=== PATIENT | male | born 1945 | race Hispanic/Latino ===

== ENCOUNTER 2022-04-23 12:15 | Inpatient (IN) | payer MEDICARE ==
[2022-04-23] MEDS ORDERED: ACETAMINOPHEN 650 MG RECT SUPP PR ONE (13:02)
--- NOTE | 2022-04-23 13:08 | XRay Report ---
CHEST 1 VIEW 04/23/2022 12:40 PM INDICATION / CLINICAL INFORMATION: fever, hypoxia. COMPARISON: None available. FINDINGS: SUPPORT DEVICES: None. HEART / MEDIASTINUM: Borderline to mild cardiomegaly LUNGS / PLEURA: Mild central pulmonary venous congestion is suspected. No convincing infiltrate, pleu ral effusion or pneumothorax ADDITIONAL FINDINGS: No significant additional findings. IMPRESSION: 1. Mild cardiomegaly and pulmonary venous congestion. No convincing pneumonia on portable AP chest. Signer Name: Earl Ashby Jr, MD Signed: 04/23/2022 1:04 PM Workstation Name: [id number]
[2022-04-23 13:37] LABS: Hematocrit 30.4 % (35.5-45.6); Hemoglobin 10.2 gm/dl (11.8-15.2); Mean Corpuscular HGB Conc 33 % (32-34); Mean Corpuscular Volume 94 fl (84-94); Platelet Count 173 K/mm3 (140-440); Red Blood Count 3.22 M/mm3 (3.65-5.03); Red Cell Distribution Width 15.2 % (13.2-15.2)
[2022-04-23 14:02] LABS: Alanine Aminotransferase 9 units/L (7-56); Albumin 3.2 g/dL (3.9-5); BUN/Creatinine Ratio 21; Blood Urea Nitrogen 23 mg/dL (9-20); Calcium 8.2 mg/dL (8.4-10.2); Hemolysis Index 5
[2022-04-23] MEDS ORDERED: CEFEPIME/NS 2 GM/100 ML 2 GM/100 ML BAG IV ONE (14:02)
[2022-04-23] MEDS ORDERED: VANCOMYCIN 2,000 MG in SODIUM CHLORIDE 0.9% 500 ML 500 ML IV ONE (14:02)
--- NOTE | 2022-04-23 14:15 | Emergency Department Report ---
ED Fever HPI - General Chief Complaint: Dyspnea/Respdistress Stated Complaint: FEVER/DIFFICULTY BREATHING Time Seen by Provider: 04/23/22 12:32 Source: patient Exam Limitations: clinical condition (Diminished mental status) - History of Present Illness Initial Comments: 76-year-old male with a past medical history of chronic lymphedema, A. fib currently on Eliquis, hypertension, hypothyroidism, and diabetes presents to the hospital from skilled nursing with complaints of fever and hypoxia. EMS reports a saturation 74% on nasal cannula patient was therefore transported with no nrebreather. Fever 102.3 upon EMS arrival. Patient is drowsy but easily arousable denies pain at this time but complains of generalized weakness and malaise ED Review of Systems ROS: Stated complaint: FEVER/DIFFICULTY BREATHING Other details as noted in HPI Comment: All other systems reviewed and negative ED Past Medical Hx - Social History Smoking Status: Former Smoker Substance Use Type: None ED Physical Exam - General Limitations: No Limitations - Other Other exam information: General: Morbidly obese Head: Atraumatic Eyes: normal appearance ENT: Moist mucous membranes Neck: Normal appearance, no midline tenderness Chest: Clear to auscultation bilaterally, tachypnea CV: Irregular rhythm Abdomen: Soft, normal bowel sounds, nontender, nondistended, no rebound or guarding Back: Normal inspection Extremity: Bilateral lower extremity lymphedema with erythema and mild odorous weeping to leg wounds. Erythema extending from the lower extremity upwards towards the thigh Neuro: Drowsy but easily arousable. Oriented x3, equal handgrip Psych: Appropriate behavior Skin: No rash ED Course Vital Signs 04/23/22 04/23/22 12:19 12:35 Temperature 101.0 F H Pulse Rate 98 H 93 H Respiratory 33 H Rate Blood Pressure 134/53 Blood Pressure 168/98 134/53 [Left] O2 Sat by Pulse 100 100 Oximetry ED Medical Decision Making - Lab Data Result diagrams: 04/23/22 12:57 04/23/22 12:57 Lab Results 04/23/22 04/23/22 04/23/22 Range/Units 12:57 12:57 12:57 WBC 12.2 H (4.5-11.0) K/mm3 RBC 3.22 L (3.65-5.03) M/mm3 Hgb 10.2 L (11.8-15.2) gm/dl Hct 30.4 L (35.5-45.6) % MCV 94 (84-94) fl MCH 32 (28-32) pg MCHC 33 (32-34) % RDW 15.2 (13.2-15.2) % Plt Count 173 (140-440) K/mm3 Seg Neutrophils % Mallet Cutter APTT 45.2 H (24.2-36.6) Sec. Sodium 136 L (137-145) mmol/L Potassium 4.0 (3.6-5.0) mmol/L Chloride 99.7 (98-107) mmol/L Carbon Dioxide 19 L (22-30) mmol/L Anion Gap 21 mmol/L BUN 23 H (9-20) mg/dL Creatinine 1.1 (0.8-1.3) mg/dL Estimated GFR > 60 ml/min BUN/Creatinine Ratio 21 % Glucose 114 H (75-100) mg/dL Calcium 8.2 L (8.4-10.2) mg/dL Total Bilirubin 1.20 (0.1-1.2) mg/dL AST 19 (5-40) units/L ALT 9 (7-56) units/L Alkaline Phosphatase 70 (35-129) units/L Troponin T < 0.010 (0.00-0.029) ng/mL NT-Pro-B Natriuret Pep (0-900) pg/mL Total Protein 6.9 (6.3-8.2) g/dL Albumin 3.2 L (3.9-5) g/dL Albumin/Globulin Ratio 0.9 % 04/23/22 Range/Units 12:57 WBC (4.5-11.0) K/mm3 RBC (3.65-5.03) M/mm3 Hgb (11.8-15.2) gm/dl Hct (35.5-45.6) % MCV (84-94) fl MCH (28-32) pg MCHC (32-34) % RDW (13.2-15.2) % Plt Count (140-440) K/mm3 Seg Neutrophils % APTT (24.2-36.6) Sec. Sodium (137-145) mmol/L Potassium (3.6-5.0) mmol/L Chloride (98-107) mmol/L Carbon Dioxide (22-30) mmol/L Anion Gap mmol/L BUN (9-20) mg/dL Creatinine (0.8-1.3) mg/dL Estimated GFR ml/min BUN/Creatinine Ratio % Glucose (75-100) mg/dL Calcium (8.4-10.2) mg/dL Total Bilirubin (0.1-1.2) mg/dL AST (5-40) units/L ALT (7-56) units/L Alkaline Phosphatase (35-129) units/L Troponin T (0.00-0.029) ng/mL NT-Pro-B Natriuret Pep 4561 H (0-900) pg/mL Total Protein (6.3-8.2) g/dL Albumin (3.9-5) g/dL Albumin/Globulin Ratio % - EKG Data -: EKG Interpreted by Me EKG shows normal: ST-T waves (No STEMI) Rate: tachycardia (Irregular tachycardia likely A. fib rate 100) - Radiology Data Radiology results: report reviewed CHEST 1 VIEW 04/23/2022 12:40 PM INDICATION / CLINICAL INFORMATION: fever, hypoxia. COMPARISON: None available. FINDINGS: SUPPORT DEVICES: None. HEART / MEDIASTINUM: Borderline to mild cardiomegaly LUNGS / PLEURA: Mild central pulmonary venous congestion is suspected. No convincing infiltrate, pleural effusion or pneumothorax ADDITIONAL FINDINGS: No significant additional findings. IMPRESSION: 1. Mild cardiomegaly and pulmonary venous congestion. No convincing pneumonia on portable AP chest. - Medical Decision Making 76-year-old male presents to the hospital with fever and possible hypoxia. Patient transitioned from nonrebreather to 4 L nasal cannula with saturation of 100%. Sepsis protocol initiated. Patient received cefepime and vancomycin with likely source of infection to lower extremities. No signs of septic shock. Chest x-ray reveals findings of heart failure therefore 30 mill per KG bolus normal saline not provided since patient does not have hypotension. Lactic acid pending at disposition. Hospitalist to admit ABG presented suggest a respiratory alkalosis performed on 36% FiO2 Critical Care Time: No Critical care attestation.: If time is entered above; I have spent that time in minutes in the direct care of this critically ill patient, excluding procedure time. ED Disposition Clinical Impression: Fever, Cellulitis, leg, CHF exacerbation Disposition: ADMITTED INPATIENT Is pt being admited?: No Does the pt Need Aspirin: No Condition: Stable Time of Disposition: 14:59
[2022-04-23 14:32] LABS: ABG Base Excess -1.4 mmol/L (-2.0-3.0); ABG HCO3 21.1 mmol/L (20.0-26.0); ABG Methemoglobin 0.6 % (0.0-1.5); ABG Oxygen Saturation 96.6 % (95.0-99.0); ABG PCO2 28.5 mm Hg; ABG PH 7.487 pH Units (7.350-7.450); ABG PO2 72.8 mm Hg (80.0-90.0)
[2022-04-23 14:34] LABS: Anisocytosis 1+; Band Neutrophils # (Manual) 0.2 K/mm3; Basophils % (Manual) 0 % (0.0-1.8); Eosinophils % (Manual) 0 % (0.0-4.3); Platelet Estimate Consistent w Auto; Total Cells Counted 100
[2022-04-23] MEDS ORDERED: ONDANSETRON 4 MG/2 ML INJ IV PRN (14:49)
[2022-04-23] MEDS ORDERED: ALBUTEROL 2.5 MG/3 ML NEBU IH PRN (14:49)
[2022-04-23] MEDS ORDERED: ACETAMINOPHEN 325 MG TAB PO PRN ×2 (14:49→14:52)
[2022-04-23] MEDS ORDERED: SODIUM CHLORIDE 0.9% 1000 ML IV SOLN IV SCH (14:52)
[2022-04-23] MEDS ORDERED: HYDROmorphone 0.5 MG/0.5 ML INJ IV PRN (14:52)
[2022-04-23] MEDS ORDERED: VANCOMYCIN PHARMACY TO DOSE IV SCH (15:00)
--- NOTE | 2022-04-23 15:05 | History and Physical Report ---
History of Present Illness Chief complaint: He has a fever History of present illness: 76 YO [facility] Resident at [facility] with Chronic Lymphedema, Atrial Fib on therapeutic anticoagulation with Eliquis, DM, Hypothyroidism, Obesity presents to ED for evaluation. Patient is lethargic with diminished cognition at time of evaluation and limited provide history. Patient is brought in by EMS staff, ED staff, as well as [facility] facility staff. As per staff the patient was found to have fever to 102.3 degrees. EMS notified and upon arrival the patient was found to be in distress and subsequent transported to [facility] for further care and evaluation of the aforementioned symptoms. The patient was seen and evaluated in the emergency department. All lab and imaging studies reviewed. Patient found to have a pulse oximetry of 78% on room air which is consistent with acute hypoxemic respiratory failure secondary to pneumonia complicated by sepsis. Patient also found to have concomitant right leg cellulitis, hyponatremia, toxic metabolic encephalopathy, and metabolic acidosis, as well as urinary tract infection. Patient admitted to telemetry and initiated on sepsis protocol, as well as pneumonia protocol. Patient has diminished cognition but has a positive gag reflex and is able to protect his airway without difficulty. No reports of chills, chest pain, palpitation, productive cough, trauma, skin rash, recent contact, known exposure to COVID-19. No prior admission for review. No medication listed at time of admission for reconciliation. Advanced care planning conducted in ED. Past History Past Medical History: atrial fib, diabetes, hypertension Past Surgical History: No surgical history, Other (Reviewed) Social history: single. denies: smoking, alcohol abuse, prescription drug abuse Family history: diabetes, hypertension Medications and Allergies Allergies Allergy/AdvReac Type Severity Reaction Status Date / Time No Known Allergies Allergy Verified 04/23/22 12:24 Active Meds: Active Medications Acetaminophen (Acetaminophen 325 Mg Tab) 650 mg PO Q4H PRN PRN Reason: Pain MILD(1-3)/Fever >100.5/GUTIERREZ Acetaminophen (Acetaminophen 325 Mg Tab) 650 mg PO Q6H PRN PRN Reason: Pain, Mild (1-3) Albuterol (Albuterol 2.5 Mg/3 Ml Nebu) 2.5 mg IH Q4HRT PRN PRN Reason: Shortness Of Breath Hydromorphone HCl (Hydromorphone 0.5 Mg/0.5 Ml Inj) 0.5 mg IV Q3H PRN PRN Reason: Pain , Severe (7-10) Hydromorphone HCl (Hydromorphone 0.5 Mg/0.5 Ml Inj) 0.25 mg IV Q4H PRN PRN Reason: Pain, Moderate (4-6) Vancomycin HCl 1,500 mg/ (Sodium Chloride) 530 mls @ 265 mls/hr IV Q12H VENESSA; Protocol Cefepime HCl (Cefepime/Ns 2 Gm/100 Ml) 2 gm in 100 mls @ 200 mls/hr IV Q8H VENESSA; Protocol Ondansetron HCl (Ondansetron 4 Mg/2 Ml Inj) 4 mg IV Q8H PRN PRN Reason: Nausea And Vomiting Oxycodone/Acetaminophen (Oxycodone /Acetaminophen 5-325mg Tab) 1 tab PO Q6H PRN PRN Reason: Pain, Moderate (4-6) Sodium Chloride (Sodium Chloride 0.9% 10 Ml Flush Syringe) 10 ml IV BID VENESSA Sodium Chloride (Sodium Chloride 0.9% 10 Ml Flush Syringe) 10 ml IV PRN PRN PRN Reason: LINE FLUSH Sodium Chloride (Sodium Chloride 0.9% 1000 Ml Iv Soln) 3,650 ml 30 ml/kg (3650 ml) IV ONCE ONE Stop: 04/23/22 14:53 Review of Systems ROS unobtainable: due to mental status Exam - Constitutional Vitals: Temp Pulse Resp BP Pulse Ox 101.0 F H 88 24 132/58 98 04/23/22 12:35 04/23/22 14:54 04/23/22 14:54 04/23/22 14:54 04/23/22 14:54 General appearance: Present: mild distress, obese - EENT Eyes: Present: PERRL ENT: clear oral mucosa, hearing decreased - Neck Neck: Present: supple, normal ROM - Respiratory Respiratory effort: labored, accessory muscle use Respiratory: bilateral: diminished - Cardiovascular Heart Sounds: Present: S1 & S2. Absent: rub, click - Extremities Extremity abnormal: edema Peripheral Pulses: abnormal (Capillary refill greater than 3.5 seconds) - Abdominal General gastrointestinal: Present: soft, non-tender, non-distended, normal bowel sounds Male genitourinary: Present: normal - Integumentary Integumentary: Present: dry, clammy, decreased turgor - Musculoskeletal Musculoskeletal: generalized weakness - Psychiatric Psychiatric: no appropriate mood/affect, no intact judgment & insight, no memory intact - Neurologic Neurologic: CNII-XII intact, no focal deficits, moves all extremities, no gait normal HEART Score - HEART Score Troponin: Troponin T < 0.010 ng/mL (0.00-0.029) 04/23/22 12:57 Results - Labs CBC & Chem 7: 04/23/22 12:57 04/23/22 12:57 Labs: Abnormal lab results 04/23/22 04/23/22 04/23/22 Range/Units 12:57 12:57 12:57 WBC 12.2 H (4.5-11.0) K/mm3 RBC 3.22 L (3.65-5.03) M/mm3 Hgb 10.2 L (11.8-15.2) gm/dl Hct 30.4 L (35.5-45.6) % Seg Neuts % (Manual) 92.0 H (40.0-70.0) % Lymphocytes % (Manual) 4.0 L (13.4-35.0) % Seg Neutrophils # Man 11.2 H (1.8-7.7) K/mm3 Lymphocytes # (Manual) 0.5 L (1.2-5.4) K/mm3 APTT 45.2 H (24.2-36.6) Sec. ABG pH (7.350-7.450) pH Units ABG pO2 (80.0-90.0) mm Hg ABG Hemoglobin (14.0-18.0) gm/dl Oxyhemoglobin (95.0-99.0) % Sodium 136 L (137-145) mmol/L Carbon Dioxide 19 L (22-30) mmol/L BUN 23 H (9-20) mg/dL Glucose 114 H (75-100) mg/dL Lactic Acid (0.7-2.0) mmol/L Calcium 8.2 L (8.4-10.2) mg/dL NT-Pro-B Natriuret Pep (0-900) pg/mL Albumin 3.2 L (3.9-5) g/dL 04/23/22 04/23/22 04/23/22 Range/Units 12:57 12:57 14:14 WBC (4.5-11.0) K/mm3 RBC (3.65-5.03) M/mm3 Hgb (11.8-15.2) gm/dl Hct (35.5-45.6) % Seg Neuts % (Manual) (40.0-70.0) % Lymphocytes % (Manual) (13.4-35.0) % Seg Neutrophils # Man (1.8-7.7) K/mm3 Lymphocytes # (Manual) (1.2-5.4) K/mm3 APTT (24.2-36.6) Sec. ABG pH 7.487 H (7.350-7.450) pH Units ABG pO2 72.8 L (80.0-90.0) mm Hg ABG Hemoglobin 11.3 L (14.0-18.0) gm/dl Oxyhemoglobin 94.3 L (95.0-99.0) % Sodium (137-145) mmol/L Carbon Dioxide (22-30) mmol/L BUN (9-20) mg/dL Glucose (75-100) mg/dL Lactic Acid 2.80 H* (0.7-2.0) mmol/L Calcium (8.4-10.2) mg/dL NT-Pro-B Natriuret Pep 4561 H (0-900) pg/mL Albumin (3.9-5) g/dL Assessment and Plan - Patient Problems (1) Sepsis Current Visit: Yes Status: Acute Plan to address problem: Sepsis protocol: Chest x-ray, CBC, urinalysis, IV fluid resuscitation therapy as clinically indicated, IV antibiotic therapy, maintain mean arterial pressure greater than equal to 65, monitor fluid balance, IV pressor support as clinically indicated, serial lactic acid level. Blood culture. (2) CHF (congestive heart failure) Current Visit: Yes Status: Acute Qualifiers: Heart failure chronicity: chronic Plan to address problem: Strict I/O, monitor fluid balance, care is taken not to exacerbate heart failure with fluid overload, strict I's/O, supportive care. Continue medical management. (3) Acute hypoxemic respiratory failure Current Visit: Yes Status: Acute Plan to address problem: Chest x-ray, supplemental oxygen, nebulizer therapy, noninvasive positive pressure ventilation as clinically indicated. (4) Pneumonia Current Visit: Yes Status: Acute Plan to address problem: Pneumonia protocol: Chest x-ray, CBC, IV antibiotic therapy, blood culture, supportive care. (5) UTI (urinary tract infection) Current Visit: Yes Status: Acute Qualifiers: Encounter type: initial encounter Plan to address problem: IV antibiotic therapy, urinalysis, continue medical management. (6) Toxic metabolic encephalopathy Current Visit: Yes Status: Acute Plan to address problem: Treat sepsis, supportive care. (7) Metabolic acidosis Current Visit: Yes Status: Acute Plan to address problem: I will resuscitation therapy, BMP, repeat BMP in AM. Serial lactic acid level. (8) Cellulitis, leg Current Visit: Yes Status: Acute Plan to address problem: IV antibiotic therapy, supportive care (9) DVT prophylaxis Current Visit: Yes Status: Acute Plan to address problem: SCD to bilateral lower extremities on bed (10) Advance care planning Current Visit: Yes Status: Acute Plan to address problem: Disease education data, care plan discussed, diagnoses discussed, patient is full code, +30 minutes. (11) Preventative health care Current Visit: Yes Status: Acute Plan to address problem: Patient to follow-up with primary care physician for all age and risk factor appropriate screening test. +30 minutes.
[2022-04-23] MEDS: VANCOMYCIN 1,500 MG in SODIUM CHLORIDE 0.9% 500 ML 500 ML IV SCH (15:33)
[2022-04-23 15:42] LABS: Bilirubin,Urine NEG (Negative); Blood,Urine MOD (Negative); Color,Urine Yellow (Yellow); Urobilinogen,Urine < 2 mg/dL (<2.0)
[2022-04-23 15:46] LABS: Amorphous Crystals,Urine Few; Bacteria,Urine 4+ /HPF (Negative)
[2022-04-24] MEDS: CEFEPIME/NS 2 GM/100 ML 2 GM/100 ML BAG IV SCH ×4 (00:24→21:37)
[2022-04-24] MEDS: VANCOMYCIN 1,500 MG in SODIUM CHLORIDE 0.9% 500 ML 500 ML IV SCH (03:50)
[2022-04-24] MEDS: HYDROmorphone 0.5 MG/0.5 ML INJ IV PRN (05:36)
[2022-04-24 06:22] LABS: Basophils % (Auto) 0.1 % (0.0-1.8); Eosinophils % (Auto) 0.5 % (0.0-4.3); Hematocrit 25.8 % (35.5-45.6); Hemoglobin 8.9 gm/dl (11.8-15.2); Lymphocytes # (Auto) 0.7 K/mm3 (1.2-5.4); Lymphocytes % (Auto) 6.8 % (13.4-35.0); Mean Corpuscular HGB Conc 34 % (32-34); Mean Corpuscular Volume 94 fl (84-94); Monocytes # (Auto) 0.4 K/mm3 (0.0-0.8); Monocytes % (Auto) 3.9 % (0.0-7.3); Platelet Count 161 K/mm3 (140-440); Red Blood Count 2.75 M/mm3 (3.65-5.03); Red Cell Distribution Width 15.1 % (13.2-15.2)
[2022-04-24 06:32] LABS: BUN/Creatinine Ratio 24; Blood Urea Nitrogen 22 mg/dL (9-20); Calcium 7.4 mg/dL (8.4-10.2); Hemolysis Index 1
--- NOTE | 2022-04-24 10:48 | Progress Note ---
Assessment and Plan Assessment and plan: 76 YO Custodial Facility Resident at [facility] with Chronic Lymphedema, Atrial Fib on therapeutic anticoagulation with Eliquis, DM, Hypothyroidism, Obesity presents to ED for evaluation of lethargy, AMS, fever and hypoxia. Patient found to have a pulse oximetry of 78% on room air which is consistent with acute hypoxemic respiratory failure secondary to pneumonia complicated by sepsis. Patient also found to have concomitant right leg cellulitis, hyponatremia, toxic metabolic encephalopathy, and metabolic acidosis, as well as urinary tract infection. Patient admitted to telemetry and initiated on sepsis protocol, as well as pneumonia protocol. Sepsis Acute hypoxic respiratory failure Pneumonia UTI Toxic metabolic encephalopathy Right leg cellulitis Atrial fibrillation, rate controlled Diabetes mellitus type 2 Hypothyroidism Obesity Diarrhea Hospital course: 04/24/2022. The patient will be continued on IV antibiotics per sepsis pathway. Follow-up blood and urine cultures. Continue O2 supplementation to maintain sats greater than 92%. With regards to the encephalopathy, continue to treat underlying causes. Continue anticoagulation and consider cardiology consultation. Continue Accu-Cheks and sliding scale insulin. Patient also reports 1 week of diarrheal stool. We will check stool studies History Interval history: No new issues overnight Hospitalist Physical - Constitutional Vitals: Temp Pulse Resp BP Pulse Ox 98.0 F 90 18 120/54 95 04/24/22 07:35 04/24/22 07:35 04/24/22 07:35 04/24/22 07:35 04/24/22 09:32 General appearance: Present: mild distress, obese - EENT Eyes: Present: PERRL, EOM intact ENT: hearing intact, clear oral mucosa, dentition normal - Neck Neck: Present: supple, normal ROM - Respiratory Respiratory effort: normal Respiratory: bilateral: CTA - Cardiovascular Rhythm: regular Heart Sounds: Present: S1 & S2. Absent: gallop, rub - Extremities Extremities: no ischemia, No edema, Full ROM - Abdominal General gastrointestinal: soft, non-tender, non-distended, normal bowel sounds - Integumentary Integumentary: Present: clear, warm, dry - Neurologic Neurologic: CNII-XII intact, moves all extremities HEART Score - HEART Score Troponin: Troponin T < 0.010 ng/mL (0.00-0.029) 04/23/22 12:57 Results - Labs CBC & Chem 7: 04/24/22 05:46 04/24/22 05:46 Labs: Laboratory Last Values WBC 10.0 K/mm3 (4.5-11.0) 04/24/22 05:46 RBC 2.75 M/mm3 (3.65-5.03) L 04/24/22 05:46 Hgb 8.9 gm/dl (11.8-15.2) L 04/24/22 05:46 Hct 25.8 % (35.5-45.6) L 04/24/22 05:46 MCV 94 fl (84-94) 04/24/22 05:46 MCH 32 pg (28-32) 04/24/22 05:46 MCHC 34 % (32-34) 04/24/22 05:46 RDW 15.1 % (13.2-15.2) 04/24/22 05:46 Plt Count 161 K/mm3 (140-440) 04/24/22 05:46 Lymph % (Auto) 6.8 % (13.4-35.0) L 04/24/22 05:46 [place] % (Auto) 3.9 % (0.0-7.3) 04/24/22 05:46 Eos % (Auto) 0.5 % (0.0-4.3) 04/24/22 05:46 Baso % (Auto) 0.1 % (0.0-1.8) 04/24/22 05:46 Lymph # (Auto) 0.7 K/mm3 (1.2-5.4) L 04/24/22 05:46 [place] # (Auto) 0.4 K/mm3 (0.0-0.8) 04/24/22 05:46 Eos # (Auto) 0.0 K/mm3 (0.0-0.4) 04/24/22 05:46 Baso # (Auto) 0.0 K/mm3 (0.0-0.1) 04/24/22 05:46 Add Manual Diff Complete 04/23/22 12:57 Total Counted 100 04/23/22 12:57 Seg Neutrophils % 88.7 % (40.0-70.0) H 04/24/22 05:46 Seg Neuts % (Manual) 92.0 % (40.0-70.0) H 04/23/22 12:57 Band Neutrophils % 2.0 % 04/23/22 12:57 Lymphocytes % (Manual) 4.0 % (13.4-35.0) L 04/23/22 12:57 Reactive Lymphs % (Man) 0 % 04/23/22 12:57 Monocytes % (Manual) 2.0 % (0.0-7.3) 04/23/22 12:57 Eosinophils % (Manual) 0 % (0.0-4.3) 04/23/22 12:57 Basophils % (Manual) 0 % (0.0-1.8) 04/23/22 12:57 Metamyelocytes % 0 % 04/23/22 12:57 Myelocytes % 0 % 04/23/22 12:57 Promyelocytes % 0 % 04/23/22 12:57 Blast Cells % 0 % 04/23/22 12:57 Nucleated RBC % Not Reportable 04/23/22 12:57 Seg Neutrophils # 8.9 K/mm3 (1.8-7.7) H 04/24/22 05:46 Seg Neutrophils # Man 11.2 K/mm3 (1.8-7.7) H 04/23/22 12:57 Band Neutrophils # 0.2 K/mm3 04/23/22 12:57 Lymphocytes # (Manual) 0.5 K/mm3 (1.2-5.4) L 04/23/22 12:57 Abs React Lymphs (Man) 0.0 K/mm3 04/23/22 12:57 Monocytes # (Manual) 0.2 K/mm3 (0.0-0.8) 04/23/22 12:57 Eosinophils # (Manual) 0.0 K/mm3 (0.0-0.4) 04/23/22 12:57 Basophils # (Manual) 0.0 K/mm3 (0.0-0.1) 04/23/22 12:57 Metamyelocytes # 0.0 K/mm3 04/23/22 12:57 Myelocytes # 0.0 K/mm3 04/23/22 12:57 Promyelocytes # 0.0 K/mm3 04/23/22 12:57 Blast Cells # 0.0 K/mm3 04/23/22 12:57 WBC Morphology Not Reportable 04/23/22 12:57 Hypersegmented Neuts Not Reportable 04/23/22 12:57 Hyposegmented Neuts Not Reportable 04/23/22 12:57 Hypogranular Neuts Not Reportable 04/23/22 12:57 Smudge Cells Not Reportable 04/23/22 12:57 Toxic Granulation Not Reportable 04/23/22 12:57 Toxic Vacuolation Not Reportable 04/23/22 12:57 Dohle Bodies Not Reportable 04/23/22 12:57 Pelger-Huet Anomaly Not Reportable 04/23/22 12:57 Bj Rods Not Reportable 04/23/22 12:57 Platelet Estimate Consistent w auto 04/23/22 12:57 Clumped Platelets Not Reportable 04/23/22 12:57 Plt Clumps, EDTA Not Reportable 04/23/22 12:57 Large Platelets Not Reportable 04/23/22 12:57 Giant Platelets Not Reportable 04/23/22 12:57 Platelet Satelliting Not Reportable 04/23/22 12:57 Plt Morphology Comment Not Reportable 04/23/22 12:57 RBC Morphology Not Reportable 04/23/22 12:57 Dimorphic RBCs Not Reportable 04/23/22 12:57 Polychromasia Not Reportable 04/23/22 12:57 Hypochromasia Not Reportable 04/23/22 12:57 Poikilocytosis Not Reportable 04/23/22 12:57 Anisocytosis 1+ 04/23/22 12:57 Microcytosis Not Reportable 04/23/22 12:57 Macrocytosis Not Reportable 04/23/22 12:57 Spherocytes Not Reportable 04/23/22 12:57 Pappenheimer Bodies Not Reportable 04/23/22 12:57 Sickle Cells Not Reportable 04/23/22 12:57 Target Cells Not Reportable 04/23/22 12:57 Tear Drop Cells Not Reportable 04/23/22 12:57 Ovalocytes Not Reportable 04/23/22 12:57 Helmet Cells Not Reportable 04/23/22 12:57 Joy-Lamkin Bodies Not Reportable 04/23/22 12:57 [place] Rings Not Reportable 04/23/22 12:57 [place] Cells Not Reportable 04/23/22 12:57 Bite Cells Not Reportable 04/23/22 12:57 Crenated Cell Not Reportable 04/23/22 12:57 Elliptocytes Not Reportable 04/23/22 12:57 Acanthocytes (Spur) Not Reportable 04/23/22 12:57 Rouleaux Not Reportable 04/23/22 12:57 Hemoglobin C Crystals Not Reportable 04/23/22 12:57 Schistocytes Not Reportable 04/23/22 12:57 Malaria parasites Not Reportable 04/23/22 12:57 Mikey Bodies Not Reportable 04/23/22 12:57 Hem Pathologist Commnt No 04/23/22 12:57 APTT 45.2 Sec. (24.2-36.6) H 04/23/22 12:57 D-Dimer 1033.55 ng/mlDDU (0-234) H 04/23/22 16:17 ABG pH 7.487 pH Units (7.350-7.450) H 04/23/22 14:14 ABG pCO2 28.5 mm Hg 04/23/22 14:14 ABG pO2 72.8 mm Hg (80.0-90.0) L 04/23/22 14:14 ABG HCO3 21.1 mmol/L (20.0-26.0) 04/23/22 14:14 ABG O2 Saturation 96.6 % (95.0-99.0) 04/23/22 14:14 ABG O2 Content 15.1 (0.0-44) 04/23/22 14:14 ABG Base Excess -1.4 mmol/L (-2.0-3.0) 04/23/22 14:14 ABG Hemoglobin 11.3 gm/dl (14.0-18.0) L 04/23/22 14:14 ABG Carboxyhemoglobin 1.9 % (0.0-5.0) 04/23/22 14:14 ABG Methemoglobin 0.6 % (0.0-1.5) 04/23/22 14:14 Oxyhemoglobin 94.3 % (95.0-99.0) L 04/23/22 14:14 FiO2 36 % 04/23/22 14:14 Sodium 135 mmol/L (137-145) L 04/24/22 05:46 Potassium 3.2 mmol/L (3.6-5.0) L 04/24/22 05:46 Chloride 104.0 mmol/L (98-107) 04/24/22 05:46 Carbon Dioxide 21 mmol/L (22-30) L 04/24/22 05:46 Anion Gap 13 mmol/L 04/24/22 05:46 BUN 22 mg/dL (9-20) H 04/24/22 05:46 Creatinine 0.9 mg/dL (0.8-1.3) 04/24/22 05:46 Estimated GFR > 60 ml/min 04/24/22 05:46 BUN/Creatinine Ratio 24 % 04/24/22 05:46 Glucose 118 mg/dL (75-100) H 04/24/22 05:46 Lactic Acid 0.90 mmol/L (0.7-2.0) 04/24/22 05:46 Calcium 7.4 mg/dL (8.4-10.2) L 04/24/22 05:46 Total Bilirubin 1.20 mg/dL (0.1-1.2) 04/23/22 12:57 AST 19 units/L (5-40) 04/23/22 12:57 ALT 9 units/L (7-56) 04/23/22 12:57 Alkaline Phosphatase 70 units/L (35-129) 04/23/22 12:57 Troponin T < 0.010 ng/mL (0.00-0.029) 04/23/22 12:57 NT-Pro-B Natriuret Pep 4561 pg/mL (0-900) H 04/23/22 12:57 Total Protein 6.9 g/dL (6.3-8.2) 04/23/22 12:57 Albumin 3.2 g/dL (3.9-5) L 04/23/22 12:57 Albumin/Globulin Ratio 0.9 % 04/23/22 12:57 Urine Color Yellow (Yellow) 04/23/22 14:47 Urine Turbidity Slightly-cloudy (Clear) 04/23/22 14:47 Urine pH 6.0 (5.0-7.0) 04/23/22 14:47 Ur Specific [place] 1.016 (1.003-1.030) 04/23/22 14:47 Urine Protein 100 mg/dl mg/dL (Negative) 04/23/22 14:47 Urine Glucose (UA) Neg mg/dL (Negative) 04/23/22 14:47 Urine Ketones 20 mg/dL (Negative) 04/23/22 14:47 Urine Blood Mod (Negative) 04/23/22 14:47 Urine Nitrite Neg (Negative) 04/23/22 14:47 Urine Bilirubin Neg (Negative) 04/23/22 14:47 Urine Urobilinogen < 2 mg/dL (<2.0) 04/23/22 14:47 Ur Leukocyte Esterase Mod (Negative) 04/23/22 14:47 Urine WBC (Auto) 29.0 /HPF (0.0-6.0) H 04/23/22 14:47 Urine RBC (Auto) 2.0 /HPF (0.0-6.0) 04/23/22 14:47 U Epithel Cells (Auto) < 1.0 /HPF (0-13.0) 04/23/22 14:47 Urine Bacteria (Auto) 4+ /HPF (Negative) 04/23/22 14:47 Amorphous Crystals Few 04/23/22 14:47 SARS-CoV-2 (PCR) Negative (Negative) 04/23/22 14:14 Blood Type O POSITIVE 04/23/22 16:22 Antibody Screen Negative 04/23/22 16:22 Microbiology: Microbiology 04/23/22 12:57 Peripheral/Venous Blood Culture - Preliminary Culture in Progress 04/23/22 12:57 Peripheral/Venous Blood Culture - Preliminary Culture in Progress Cornelius/IV: Voiding Method Incontinent Active Medications - Current Medications Current Medications: Generic Name Dose Route Start Last Admin Trade Name Freq PRN Reason Stop Dose Admin Acetaminophen 650 mg 04/23/22 14:52 Acetaminophen 325 Mg Tab PO Q6H PRN Pain, Mild (1-3) Albuterol 2.5 mg 04/23/22 14:49 Albuterol 2.5 Mg/3 Ml Nebu IH Q4HRT PRN Shortness Of Breath Hydromorphone HCl 0.5 mg 04/23/22 14:49 04/24/22 05:36 Hydromorphone 0.5 Mg/0.5 Ml Inj IV 0.5 mg Q3H PRN Administration Pain , Severe (7-10) Hydromorphone HCl 0.25 mg 04/23/22 14:52 Hydromorphone 0.5 Mg/0.5 Ml Inj IV Q4H PRN Pain, Moderate (4-6) Cefepime HCl 2 gm in 100 mls @ 200 mls/hr 04/23/22 22:00 04/24/22 05:36 Cefepime/Ns 2 Gm/100 Ml IV 200 mls/hr Q8H VENESSA Administration Protocol Ondansetron HCl 4 mg 04/23/22 14:49 Ondansetron 4 Mg/2 Ml Inj IV Q8H PRN Nausea And Vomiting Oxycodone/Acetaminophen 1 tab 04/23/22 14:49 Oxycodone /Acetaminophen 5-325mg Tab PO Q6H PRN Pain, Moderate (4-6) Sodium Chloride 10 ml 04/23/22 22:00 04/24/22 00:24 Sodium Chloride 0.9% 10 Ml Flush Syringe IV 10 ml BID VENESSA Administration Sodium Chloride 10 ml 04/23/22 14:49 Sodium Chloride 0.9% 10 Ml Flush Syringe IV PRN PRN LINE FLUSH Sodium Chloride 3,650 ml 04/23/22 14:52 Sodium Chloride 0.9% 1000 Ml Iv Soln 30 ml/kg (3650 ml) IV ONCE VENESSA
[2022-04-25] MEDS: CEFEPIME/NS 2 GM/100 ML 2 GM/100 ML BAG IV SCH ×3 (05:16→21:15)
[2022-04-25] MEDS: HYDROmorphone 0.5 MG/0.5 ML INJ IV PRN (05:17)
--- NOTE | 2022-04-25 08:33 | Progress Note ---
Assessment and Plan Assessment and plan: 76 YO Residential Facility Resident at [facility] with Chronic Lymphedema, Atrial Fib on therapeutic anticoagulation with Eliquis, DM, Hypothyroidism, Obesity presents to ED for evaluation of lethargy, AMS, fever and hypoxia. Patient found to have a pulse oximetry of 78% on room air which is consistent with acute hypoxemic respiratory failure secondary to pneumonia complicated by sepsis. Patient also found to have concomitant right leg cellulitis, hyponatremia, toxic metabolic encephalopathy, and metabolic acidosis, as well as urinary tract infection. Patient admitted to telemetry and initiated on sepsis protocol, as well as pneumonia protocol. Sepsis Acute hypoxic respiratory failure Pneumonia UTI Toxic metabolic encephalopathy Right leg cellulitis Atrial fibrillation, rate controlled Diabetes mellitus type 2 Hypothyroidism Obesity Diarrhea Hospital course: 04/24/2022. The patient will be continued on IV antibiotics per sepsis pathway. Follow-up blood and urine cultures. Continue O2 supplementation to maintain sats greater than 92%. With regards to the encephalopathy, continue to treat underlying causes. Continue anticoagulation and consider cardiology consultation. Continue Accu-Cheks and sliding scale insulin. Patient also reports 1 week of diarrheal stool. We will check stool studies 04/25/2022. Patient sitting up in the bed eating breakfast. Patient denies any new complaints. Patient currently with room air saturations are 98%. Patient back to baseline with mental status. Continue IV antibiotics and follow-up blood cultures. Continue tight glycemic control. History Interval history: No new issues overnight Hospitalist Physical - Constitutional Vitals: Temp Pulse Resp BP Pulse Ox 98.1 F 90 18 130/55 93 04/25/22 03:47 04/25/22 03:47 04/25/22 03:47 04/25/22 03:47 04/25/22 03:47 General appearance: Present: no acute distress, obese - EENT Eyes: Present: PERRL, EOM intact ENT: hearing intact, clear oral mucosa, dentition normal - Neck Neck: Present: supple, normal ROM - Respiratory Respiratory effort: normal Respiratory: bilateral: CTA - Cardiovascular Rhythm: regular Heart Sounds: Present: S1 & S2. Absent: gallop, rub - Extremities Extremities: no ischemia, No edema, Full ROM - Abdominal General gastrointestinal: soft, non-tender, non-distended, normal bowel sounds - Integumentary Integumentary: Present: clear, warm, dry - Neurologic Neurologic: CNII-XII intact, moves all extremities HEART Score - HEART Score Troponin: Troponin T < 0.010 ng/mL (0.00-0.029) 04/23/22 12:57 Results - Labs CBC & Chem 7: 04/24/22 05:46 04/24/22 05:46 Labs: Laboratory Last Values WBC 10.0 K/mm3 (4.5-11.0) 04/24/22 05:46 RBC 2.75 M/mm3 (3.65-5.03) L 04/24/22 05:46 Hgb 8.9 gm/dl (11.8-15.2) L 04/24/22 05:46 Hct 25.8 % (35.5-45.6) L 04/24/22 05:46 MCV 94 fl (84-94) 04/24/22 05:46 MCH 32 pg (28-32) 04/24/22 05:46 MCHC 34 % (32-34) 04/24/22 05:46 RDW 15.1 % (13.2-15.2) 04/24/22 05:46 Plt Count 161 K/mm3 (140-440) 04/24/22 05:46 Lymph % (Auto) 6.8 % (13.4-35.0) L 04/24/22 05:46 [place] % (Auto) 3.9 % (0.0-7.3) 04/24/22 05:46 Eos % (Auto) 0.5 % (0.0-4.3) 04/24/22 05:46 Baso % (Auto) 0.1 % (0.0-1.8) 04/24/22 05:46 Lymph # (Auto) 0.7 K/mm3 (1.2-5.4) L 04/24/22 05:46 [place] # (Auto) 0.4 K/mm3 (0.0-0.8) 04/24/22 05:46 Eos # (Auto) 0.0 K/mm3 (0.0-0.4) 04/24/22 05:46 Baso # (Auto) 0.0 K/mm3 (0.0-0.1) 04/24/22 05:46 Add Manual Diff Complete 04/23/22 12:57 Total Counted 100 04/23/22 12:57 Seg Neutrophils % 88.7 % (40.0-70.0) H 04/24/22 05:46 Seg Neuts % (Manual) 92.0 % (40.0-70.0) H 04/23/22 12:57 Band Neutrophils % 2.0 % 04/23/22 12:57 Lymphocytes % (Manual) 4.0 % (13.4-35.0) L 04/23/22 12:57 Reactive Lymphs % (Man) 0 % 04/23/22 12:57 Monocytes % (Manual) 2.0 % (0.0-7.3) 04/23/22 12:57 Eosinophils % (Manual) 0 % (0.0-4.3) 04/23/22 12:57 Basophils % (Manual) 0 % (0.0-1.8) 04/23/22 12:57 Metamyelocytes % 0 % 04/23/22 12:57 Myelocytes % 0 % 04/23/22 12:57 Promyelocytes % 0 % 04/23/22 12:57 Blast Cells % 0 % 04/23/22 12:57 Nucleated RBC % Not Reportable 04/23/22 12:57 Seg Neutrophils # 8.9 K/mm3 (1.8-7.7) H 04/24/22 05:46 Seg Neutrophils # Man 11.2 K/mm3 (1.8-7.7) H 04/23/22 12:57 Band Neutrophils # 0.2 K/mm3 04/23/22 12:57 Lymphocytes # (Manual) 0.5 K/mm3 (1.2-5.4) L 04/23/22 12:57 Abs React Lymphs (Man) 0.0 K/mm3 04/23/22 12:57 Monocytes # (Manual) 0.2 K/mm3 (0.0-0.8) 04/23/22 12:57 Eosinophils # (Manual) 0.0 K/mm3 (0.0-0.4) 04/23/22 12:57 Basophils # (Manual) 0.0 K/mm3 (0.0-0.1) 04/23/22 12:57 Metamyelocytes # 0.0 K/mm3 04/23/22 12:57 Myelocytes # 0.0 K/mm3 04/23/22 12:57 Promyelocytes # 0.0 K/mm3 04/23/22 12:57 Blast Cells # 0.0 K/mm3 04/23/22 12:57 WBC Morphology Not Reportable 04/23/22 12:57 Hypersegmented Neuts Not Reportable 04/23/22 12:57 Hyposegmented Neuts Not Reportable 04/23/22 12:57 Hypogranular Neuts Not Reportable 04/23/22 12:57 Smudge Cells Not Reportable 04/23/22 12:57 Toxic Granulation Not Reportable 04/23/22 12:57 Toxic Vacuolation Not Reportable 04/23/22 12:57 Dohle Bodies Not Reportable 04/23/22 12:57 Pelger-Huet Anomaly Not Reportable 04/23/22 12:57 Bj Rods Not Reportable 04/23/22 12:57 Platelet Estimate Consistent w auto 04/23/22 12:57 Clumped Platelets Not Reportable 04/23/22 12:57 Plt Clumps, EDTA Not Reportable 04/23/22 12:57 Large Platelets Not Reportable 04/23/22 12:57 Giant Platelets Not Reportable 04/23/22 12:57 Platelet Satelliting Not Reportable 04/23/22 12:57 Plt Morphology Comment Not Reportable 04/23/22 12:57 RBC Morphology Not Reportable 04/23/22 12:57 Dimorphic RBCs Not Reportable 04/23/22 12:57 Polychromasia Not Reportable 04/23/22 12:57 Hypochromasia Not Reportable 04/23/22 12:57 Poikilocytosis Not Reportable 04/23/22 12:57 Anisocytosis 1+ 04/23/22 12:57 Microcytosis Not Reportable 04/23/22 12:57 Macrocytosis Not Reportable 04/23/22 12:57 Spherocytes Not Reportable 04/23/22 12:57 Pappenheimer Bodies Not Reportable 04/23/22 12:57 Sickle Cells Not Reportable 04/23/22 12:57 Target Cells Not Reportable 04/23/22 12:57 Tear Drop Cells Not Reportable 04/23/22 12:57 Ovalocytes Not Reportable 04/23/22 12:57 Helmet Cells Not Reportable 04/23/22 12:57 Joy-Louise Bodies Not Reportable 04/23/22 12:57 [place] Rings Not Reportable 04/23/22 12:57 [place] Cells Not Reportable 04/23/22 12:57 Bite Cells Not Reportable 04/23/22 12:57 Crenated Cell Not Reportable 04/23/22 12:57 Elliptocytes Not Reportable 04/23/22 12:57 Acanthocytes (Spur) Not Reportable 04/23/22 12:57 Rouleaux Not Reportable 04/23/22 12:57 Hemoglobin C Crystals Not Reportable 04/23/22 12:57 Schistocytes Not Reportable 04/23/22 12:57 Malaria parasites Not Reportable 04/23/22 12:57 Mikey Bodies Not Reportable 04/23/22 12:57 Hem Pathologist Commnt No 04/23/22 12:57 APTT 45.2 Sec. (24.2-36.6) H 04/23/22 12:57 D-Dimer 1033.55 ng/mlDDU (0-234) H 04/23/22 16:17 ABG pH 7.487 pH Units (7.350-7.450) H 04/23/22 14:14 ABG pCO2 28.5 mm Hg 04/23/22 14:14 ABG pO2 72.8 mm Hg (80.0-90.0) L 04/23/22 14:14 ABG HCO3 21.1 mmol/L (20.0-26.0) 04/23/22 14:14 ABG O2 Saturation 96.6 % (95.0-99.0) 04/23/22 14:14 ABG O2 Content 15.1 (0.0-44) 04/23/22 14:14 ABG Base Excess -1.4 mmol/L (-2.0-3.0) 04/23/22 14:14 ABG Hemoglobin 11.3 gm/dl (14.0-18.0) L 04/23/22 14:14 ABG Carboxyhemoglobin 1.9 % (0.0-5.0) 04/23/22 14:14 ABG Methemoglobin 0.6 % (0.0-1.5) 04/23/22 14:14 Oxyhemoglobin 94.3 % (95.0-99.0) L 04/23/22 14:14 FiO2 36 % 04/23/22 14:14 Sodium 135 mmol/L (137-145) L 04/24/22 05:46 Potassium 3.2 mmol/L (3.6-5.0) L 04/24/22 05:46 Chloride 104.0 mmol/L (98-107) 04/24/22 05:46 Carbon Dioxide 21 mmol/L (22-30) L 04/24/22 05:46 Anion Gap 13 mmol/L 04/24/22 05:46 BUN 22 mg/dL (9-20) H 04/24/22 05:46 Creatinine 0.9 mg/dL (0.8-1.3) 04/24/22 05:46 Estimated GFR > 60 ml/min 04/24/22 05:46 BUN/Creatinine Ratio 24 % 04/24/22 05:46 Glucose 118 mg/dL (75-100) H 04/24/22 05:46 Lactic Acid 0.90 mmol/L (0.7-2.0) 04/24/22 05:46 Calcium 7.4 mg/dL (8.4-10.2) L 04/24/22 05:46 Total Bilirubin 1.20 mg/dL (0.1-1.2) 04/23/22 12:57 AST 19 units/L (5-40) 04/23/22 12:57 ALT 9 units/L (7-56) 04/23/22 12:57 Alkaline Phosphatase 70 units/L (35-129) 04/23/22 12:57 Troponin T < 0.010 ng/mL (0.00-0.029) 04/23/22 12:57 NT-Pro-B Natriuret Pep 4561 pg/mL (0-900) H 04/23/22 12:57 Total Protein 6.9 g/dL (6.3-8.2) 04/23/22 12:57 Albumin 3.2 g/dL (3.9-5) L 04/23/22 12:57 Albumin/Globulin Ratio 0.9 % 04/23/22 12:57 Urine Color Yellow (Yellow) 04/23/22 14:47 Urine Turbidity Slightly-cloudy (Clear) 04/23/22 14:47 Urine pH 6.0 (5.0-7.0) 04/23/22 14:47 Ur Specific [place] 1.016 (1.003-1.030) 04/23/22 14:47 Urine Protein 100 mg/dl mg/dL (Negative) 04/23/22 14:47 Urine Glucose (UA) Neg mg/dL (Negative) 04/23/22 14:47 Urine Ketones 20 mg/dL (Negative) 04/23/22 14:47 Urine Blood Mod (Negative) 04/23/22 14:47 Urine Nitrite Neg (Negative) 04/23/22 14:47 Urine Bilirubin Neg (Negative) 04/23/22 14:47 Urine Urobilinogen < 2 mg/dL (<2.0) 04/23/22 14:47 Ur Leukocyte Esterase Mod (Negative) 04/23/22 14:47 Urine WBC (Auto) 29.0 /HPF (0.0-6.0) H 04/23/22 14:47 Urine RBC (Auto) 2.0 /HPF (0.0-6.0) 04/23/22 14:47 U Epithel Cells (Auto) < 1.0 /HPF (0-13.0) 04/23/22 14:47 Urine Bacteria (Auto) 4+ /HPF (Negative) 04/23/22 14:47 Amorphous Crystals Few 04/23/22 14:47 Coronavirus (PCR) Negative (Negative) 04/24/22 11:15 SARS-CoV-2 (PCR) Negative (Negative) 04/23/22 14:14 Blood Type O POSITIVE 04/23/22 16:22 Antibody Screen Negative 04/23/22 16:22 Microbiology: Microbiology 04/23/22 12:57 Peripheral/Venous Blood Culture - Preliminary NO GROWTH AFTER 24 HOURS 04/23/22 12:57 Peripheral/Venous Blood Culture - Preliminary NO GROWTH AFTER 24 HOURS Cornelius/IV: Voiding Method Incontinent Active Medications - Current Medications Current Medications: Generic Name Dose Route Start Last Admin Trade Name Freq PRN Reason Stop Dose Admin Acetaminophen 650 mg 04/23/22 14:52 Acetaminophen 325 Mg Tab PO Q6H PRN Pain, Mild (1-3) Albuterol 2.5 mg 04/23/22 14:49 Albuterol 2.5 Mg/3 Ml Nebu IH Q4HRT PRN Shortness Of Breath Hydromorphone HCl 0.5 mg 04/23/22 14:49 04/25/22 05:17 Hydromorphone 0.5 Mg/0.5 Ml Inj IV 0.5 mg Q3H PRN Administration Pain , Severe (7-10) Hydromorphone HCl 0.25 mg 04/23/22 14:52 Hydromorphone 0.5 Mg/0.5 Ml Inj IV Q4H PRN Pain, Moderate (4-6) Cefepime HCl 2 gm in 100 mls @ 200 mls/hr 04/23/22 22:00 04/25/22 05:16 Cefepime/Ns 2 Gm/100 Ml IV 200 mls/hr Q8H VENESSA Administration Protocol Ondansetron HCl 4 mg 04/23/22 14:49 Ondansetron 4 Mg/2 Ml Inj IV Q8H PRN Nausea And Vomiting Oxycodone/Acetaminophen 1 tab 04/23/22 14:49 Oxycodone /Acetaminophen 5-325mg Tab PO Q6H PRN Pain, Moderate (4-6) Sodium Chloride 10 ml 04/23/22 22:00 04/24/22 21:37 Sodium Chloride 0.9% 10 Ml Flush Syringe IV 10 ml BID VENESSA Administration Sodium Chloride 10 ml 04/23/22 14:49 Sodium Chloride 0.9% 10 Ml Flush Syringe IV PRN PRN LINE FLUSH Sodium Chloride 3,650 ml 04/23/22 14:52 Sodium Chloride 0.9% 1000 Ml Iv Soln 30 ml/kg (3650 ml) IV ONCE VENESSA Nutrition/Malnutrition Assess - Dietary Evaluation Nutrition/Malnutrition Findings: Nutrition Notes Start: 04/24/22 17:07 Freq: Status: Active Protocol: Document 04/24/22 17:07 CM (Rec: 04/24/22 17:19 CM [id number]) Co-Sign 04/24/22 17:07 WW Nutrition Notes 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,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 Initial or Follow up Assessment Current Diagnosis Diabetes,Sepsis,Hypertension, Heart Failure,Respiratory Failure Other Pertinent Diagnosis Hypothyroidism, AMS Current Diet Cardiac/Consistent carbohydrate Labs/Tests 04/24: Na 135 K 3.5 CO 21 BUN 22 Adj Ca 8.04 Pertinent Medications 04/24: Reviewed Height 5 ft 10 in Weight 116.6 kg Usual Body Weight 109.09 kg [place] Body Weight (kg) 75.45 BMI 36.8 Intake Prior to Admission Good Weight change and time frame 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 He reported that his appetite is "mellow" and he prefers something bland at this time. Pt was able to eat ~66% of his breakfast and 2 puddings today - no ADL notes to compare % PO intake. Pt reported multiple BM this morning - diarrhea. Brown/scaly scabbing on LE - may be beneficial to initiate ascorbic acid and zinc. 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 No Is Patient Ambulatory and/or Out of Bed No REE-([place]-confined to bed) 2300.400 Calculation Used for Recommendations [place] Additional Notes Protein: 1.0-1.2g/kg Adj BW; 95-115g PRO q day Fluids: 1-1.5L q day or per MD Nutrition Intervention Change Diet Order: Continue current diet order Goal #1 Pt to consume >75% of estimated energy/protein needs through current diet order Follow-Up By: 05/01/22 Additional Comments Monitor %PO intake, nutrition- related labs, and integumentary system
[2022-04-25] MEDS: oxyCODONE /ACETAMINOPHEN 5-325MG TAB PO PRN ×2 (09:32→20:18)
[2022-04-25 13:52] LABS: Calcium 8.5 mg/dL (8.4-10.2); Hemolysis Index 0
[2022-04-25 14:03] LABS: Basophils % (Auto) 0.3 % (0.0-1.8); Eosinophils # (Auto) 0.2 K/mm3 (0.0-0.4); Hematocrit 28.1 % (35.5-45.6); Hemoglobin 9.3 gm/dl (11.8-15.2); Lymphocytes # (Auto) 0.7 K/mm3 (1.2-5.4); Lymphocytes % (Auto) 5.8 % (13.4-35.0); Mean Corpuscular HGB Conc 33 % (32-34); Mean Corpuscular Volume 94 fl (84-94); Monocytes # (Auto) 0.5 K/mm3 (0.0-0.8); Monocytes % (Auto) 4.3 % (0.0-7.3); Platelet Count 173 K/mm3 (140-440); Red Cell Distribution Width 14.8 % (13.2-15.2)
[2022-04-25 14:07] LABS: Blood Urea Nitrogen 20 mg/dL (9-20)
[2022-04-25 14:12] LABS: BUN/Creatinine Ratio 20
[2022-04-26] MEDS: CEFEPIME/NS 2 GM/100 ML 2 GM/100 ML BAG IV SCH (05:48)
--- NOTE | 2022-04-26 08:58 | Discharge Summary ---
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 Patient found to have a pulse oximetry of 78% on room air which is consistent with acute hypoxemic respiratory failure secondary to pneumonia complicated by sepsis. Patient also found to have concomitant right leg cellulitis, hyponatremia, toxic metabolic encephalopathy, and metabolic acidosis, as well as urinary tract infection. Patient admitted to telemetry and initiated on sepsis protocol, as well as pneumonia protocol. Sepsis Acute hypoxic respiratory failure Pneumonia UTI Toxic metabolic encephalopathy Right leg cellulitis Atrial fibrillation, rate controlled Diabetes mellitus type 2 Hypothyroidism Obesity Diarrhea Hospital course: 04/24/2022. The patient will be continued on IV antibiotics per sepsis pathway. Follow-up blood and urine cultures. Continue O2 supplementation to maintain sats greater than 92%. With regards to the encephalopathy, continue to treat underlying causes. Continue anticoagulation and consider cardiology consultation. Continue Accu-Cheks and sliding scale insulin. Patient also reports 1 week of diarrheal stool. We will check stool studies 04/25/2022. Patient sitting up in the bed eating breakfast. Patient denies any new complaints. Patient currently with room air saturations are 98%. Patient back to baseline with mental status. Continue IV antibiotics and follow-up blood cultures. Continue tight glycemic control. 04/26/2022. Patient with saturations of greater than 92% on room air. Right lower extremity cellulitis improved. Blood cultures negative x2 days. Patient's altered mentation resolved and back to baseline with mental status. Patient is felt to receive maximal hospital benefit and will be discharged back to [facility]. Dedicated discharge time 35 minutes Disposition: 01 HOME / SELF CARE / HOMELESS Final Discharge Diagnosis (Prints w/discharge instructions): Sepsis. Acute hypoxic respiratory failure. Pneumonia. UTI. Toxic metabolic encephalopathy. Right leg cellulitis. Atrial fibrillation, rate controlled. Diabetes mellitus type 2. Hypothyroidism. Obesity. Diarrhea Core Measure Documentation - Palliative Care Palliative Care/ Comfort Measures: Not Applicable - Core Measures Any of the following diagnoses?: none Exam - Constitutional Vitals: Temp Pulse Resp BP Pulse Ox 97.8 F 87 18 124/60 96 04/26/22 07:17 04/26/22 07:17 04/26/22 07:17 04/26/22 07:17 04/26/22 07:17 General appearance: Present: no acute distress, well-nourished - EENT Eyes: Present: PERRL ENT: hearing intact, clear oral mucosa - Neck Neck: Present: supple, normal ROM - Respiratory Respiratory effort: normal Respiratory: bilateral: CTA - Cardiovascular Heart Sounds: Present: S1 & S2. Absent: rub, click - Extremities Extremities: pulses symmetrical, No edema Peripheral Pulses: within normal limits - Abdominal General gastrointestinal: Present: soft, non-tender, non-distended, normal bowel sounds Male genitourinary: Present: normal - Integumentary Integumentary: Present: clear, warm, dry - Musculoskeletal Musculoskeletal: gait normal, strength equal bilaterally - Psychiatric Psychiatric: appropriate mood/affect, intact judgment & insight - Neurologic Neurologic: CNII-XII intact, moves all extremities Plan Activity: advance as tolerated Weight Bearing Status: Weight Bear as Tolerated Diet: diabetic Follow up with: PRIMARY CARE, [Primary Care Provider] - 3-5 Days Prescriptions: cefUROXime [Ceftin] 250 mg PO Q12H #14 tab-cap
--- NOTE | 2022-04-26 12:10 | Electrocardiograph Report ---
[facility] Test Date: 2022-04-23 Test Time: 13:51:23 Pat Name: RAYNA VELASQUEZ Department: Room: A452 Gender: M Associate [employer]: [birth year] : 1945 Requested By: ROYAL BECK Order Number: [id number] Reading MD: Carlos Glover Measurements Intervals Atkins Rate: 100 P: 0 VT: 134 QRS: -44 QRSD: 108 T: 99 QT: 335 QTc: 432 Interpretive Statements Sinus tachycardia with irregular rate Left anterior fascicular block Abnormal T, consider ischemia, lateral leads No previous ECG available for comparison Electronically Signed On 04-26-2022 9:10:11 PDT by Carlos Glover
[2022-04-26 12:27] VITALS: BP 136/69
== END 2022-04-26 15:00 | DRG 871 ==
LOC: ED 12:15 → 4A 14:49
PROVIDERS: ADMIT Internal Medicine; ATTEND Hospitalist
PROC: 4A033R1 Measurement of Arterial Saturation, Peripheral, Percutaneous Approach (ICD-10-PCS; principal; 2022-04-23)
DX: A41.9 Sepsis, unspecified organism (principal); G92.8 Other toxic encephalopathy; J18.9 Pneumonia, unspecified organism; J96.01 Acute respiratory failure with hypoxia; E87.2 Acidosis; N39.0 Urinary tract infection, site not specified; L03.115 Cellulitis of right lower limb; Z20.822 Contact with and (suspected) exposure to COVID-19; I50.9 Heart failure, unspecified; I48.91 Unspecified atrial fibrillation; E11.9 Type 2 diabetes mellitus without complications; E03.9 Hypothyroidism, unspecified; E66.9 Obesity, unspecified; Z68.36 Body mass index [BMI] 36.0-36.9, adult; Z87.891 Personal history of nicotine dependence; I11.0 Hypertensive heart disease with heart failure; Z83.3 Family history of diabetes mellitus; Z82.49 Family history of ischemic heart disease and other diseases of the circulatory system
CPT/HCPCS: 36415; 71045; 80048; 80053; 81001; 82140; 82803; 83880; 84484; 85007; 85025; 85379; 85730; 86850; 86900; 86901; 87040; 87045; 87086; 93005; 94760; 96374; 99285; 99406; G0378; J0692; J1170; J3370; J7040; U0003